=== PATIENT | female | born 1935 | race Caucasian/White ===

== ENCOUNTER 2020-08-08 11:10 | Day surgery (SDC) | payer MEDICARE ==
[2020-08-08] MEDS ORDERED: Depo-Medrol 40 MG/ML IM ONE (11:11)
[2020-08-08] MEDS ORDERED: LIDOCAINE HCL 2% 100 MG/5 ML IJ ONE (11:11)
[2020-08-08] MEDS ORDERED: DIPRIVAN 200 MG/20 ML IV ONE (13:16)
--- NOTE | 2020-08-08 14:15 | XRAY ---
Indication: Bilateral L4-S1 MBB. Intraoperative fluoroscopy provided for 5 seconds. Single digital spot image submitted for interpretation demonstrate posterior needle tips projecting over the expected left and right L4-S1 nerve roots. Correlate with intraoperative findings/report.
--- NOTE | 2020-08-08 14:18 | XRAY ---
5 seconds of fluoroscopy was used in surgery for a bilateral L4-L5 and L5-S1 MBB.
[2020-08-08] MEDS ORDERED: Lactated Ringers 1,000 ML IV ONE (15:41)
== END 2020-08-08 13:41 | disposition home or self-care (01) ==
LOC: SDC-PAIN 11:10
PROVIDERS: ATTEND Psychiatry & Neurology Pain Medicine
DX: M47.816 Spondylosis without myelopathy or radiculopathy, lumbar region (principal); I10 Essential (primary) hypertension; Z79.899 Other long term (current) drug therapy
CPT/HCPCS: 64493; 64494; 72020; 77002; J1030; J2704

== ENCOUNTER 2020-09-19 11:00 | Day surgery (SDC) | payer MEDICARE ==
[2020-09-19] MEDS ORDERED: BUPIVACAINE 0.5% VIAL IJ ONE (11:01)
[2020-09-19] MEDS ORDERED: Depo-Medrol 40 MG/ML IM ONE (11:01)
[2020-09-19] MEDS ORDERED: DIPRIVAN 200 MG/20 ML IV ONE (12:38)
--- NOTE | 2020-09-19 15:30 | XRAY ---
Indication: Bilateral L4-S1 MBB. Intraoperative fluoroscopy provided for 13 seconds. Single digital spot image submitted for interpretation demonstrates posterior needle tips projecting over the expected left and right L4-S1 nerve roots. Correlate with intraoperative findings/report.
[2020-09-19] MEDS ORDERED: Lactated Ringers 1,000 ML IV ONE (15:54)
--- NOTE | 2020-09-19 16:35 | XRAY ---
13 seconds fluoroscopy time in surgery for bilateral L4-S1 MBB.
== END 2020-09-19 13:10 | disposition home or self-care (01) ==
LOC: SDC-PAIN 11:00
PROVIDERS: ATTEND Psychiatry & Neurology Pain Medicine
DX: M47.816 Spondylosis without myelopathy or radiculopathy, lumbar region (principal); Z79.899 Other long term (current) drug therapy
CPT/HCPCS: 64493; 64494; 72020; 77002; 99100; J1030; J2704

== ENCOUNTER 2020-10-24 13:47 | Day surgery (SDC) | payer MEDICARE ==
[2020-10-24] MEDS ORDERED: Decadron 4 MG INJ IV ONE (13:48)
[2020-10-24] MEDS ORDERED: LIDOCAINE HCL 2% 100 MG/5 ML IJ ONE (13:48)
[2020-10-24] MEDS ORDERED: Lactated Ringers 1,000 ML IV ONE (14:07)
[2020-10-24] MEDS ORDERED: Ketamine HCl 50 MG/ML ONE (14:41)
[2020-10-24] MEDS ORDERED: DIPRIVAN 200 MG/20 ML IV ONE (14:41)
--- NOTE | 2020-10-24 17:00 | XRAY ---
Indication: Right C2-C4 MBB. Intraoperative fluoroscopy provided for 13 seconds. 2 digital spot image submitted for interpretation demonstrates posterior needle tips projecting over the expected right C2-C4 nerve roots. Correlate with intraoperative findings/report.
--- NOTE | 2020-10-24 17:14 | XRAY ---
13 seconds fluoroscopy time in surgery for right C2-C4 MBB.
== END 2020-10-24 17:05 | disposition home or self-care (01) ==
LOC: SDC-PAIN 13:47
PROVIDERS: ATTEND Psychiatry & Neurology Pain Medicine
DX: M47.812 Spondylosis without myelopathy or radiculopathy, cervical region (principal); Z79.899 Other long term (current) drug therapy
CPT/HCPCS: 64490; 64491; 72040; 77002; J1100; J2704

== ENCOUNTER 2021-05-01 09:32 | Day surgery (SDC) | payer MEDICARE ==
[2021-05-01] MEDS ORDERED: Sodium Chloride 0.9(Preservative Free) 10 ML IJ ONE (09:33)
[2021-05-01] MEDS ORDERED: Depo-Medrol 40 MG/ML IM ONE (09:33)
[2021-05-01] MEDS ORDERED: DIPRIVAN 200 MG/20 ML IV ONE (11:30)
[2021-05-01] MEDS ORDERED: Lactated Ringers 1,000 ML IV ONE (12:03)
--- NOTE | 2021-05-01 14:04 | XRAY ---
Indication: Right L5-S2 transforaminal JOSELINE. Intraoperative fluoroscopy provided for 1 minute. 6 digital spot image submitted for interpretation demonstrates posterior needle tips projecting over the expected right L5 and S1 nerve roots. Small amount of contrast injected for needle tip placement. Correlate with intraoperative findings/report.
--- NOTE | 2021-05-01 14:51 | XRAY ---
1 minute fluoroscopy time in surgery for right L5-S2 transforaminal JOSELINE.
== END 2021-05-01 12:00 | disposition home or self-care (01) ==
LOC: SDC-PAIN 09:32
PROVIDERS: ATTEND Psychiatry & Neurology Pain Medicine
DX: M54.16 Radiculopathy, lumbar region (principal); I10 Essential (primary) hypertension; Z79.899 Other long term (current) drug therapy
CPT/HCPCS: 64483; 64484; 72100; 77003; J1030; J2704; Q9966